=== PATIENT | female | born 1955 | race African-American/Black ===

== ENCOUNTER 2017-08-12 19:25 | Emergency (ER) | payer BC, OTHER ==
[~2017-08-12] VITALS: Ht 157.5 cm; Wt 54.4 kg
--- NOTE | ~2017-08-12 | EKG ---
[place] [address] [address] [facility] [place] [address] ELECTROCARDIOGRAM REPORT Name: CLAUDIA STAFFORD V Room #: [facility]#: [id number] Admission: 08/12/17 Attend Phys: Discharge: 08/12/17 Date of : 51 Report #: [id number] THIS REPORT FOR: //name// [facility] ED Test Date: 2017-08-12 Test Time: 20:25:52 Pat Name: CLAUDIA STAFFORD Department: Room: Gender: F Personnel Monitor: [facility] [place] : 1955 Requested By: Jad Figueroa Order Number: [id number] MD: Mahin Jara Measurements Intervals [place] Rate: 66 P: 24 NC: 165 QRS: -8 QRSD: 72 T: 39 QT: 398 QTc: 417 Interpretive Statements Sinus rhythm Left atrial enlargement Left ventricular hypertrophy Compared to ECG 03/10/2005 23:13:50 Left ventricular hypertrophy now present Sinus tachycardia no longer present Electronically Signed On 08-13-2017 8:24:54 CDT by Mahin Jara [email or web address] <ELECTRONICALLY SIGNED> By: Mahin Jara MD, [facility] 08/13/1724 24 24 Mahin Jara MD, [facility] /EPI
[~2017-08-12 19:25] MED LIST: CYCLOBENZAPRINE5 MG PO; IBUPROFEN 800800 MG PO; XANAX 0.5 MG0.5 MG PO
[2017-08-12 20:01] LABS: ABSOLUTE NEUTROPHILS 2.6 thou/uL (1.4-8.2); BASOPHILS 0.8 % (0.0-2.0); EOSINOPHILS 1.8 % (0.0-3.0); HEMATOCRIT 40.3 % (37.0-47.0); HEMOGLOBIN 13.4 gm/dL (12.0-15.0); LYMPHOCYTES 29.6 % (24.0-44.0); MCH 30.5 pg (26.0-34.0); MCHC 33.4 g/dL (28.0-37.0); MCV 91.2 fL (80.0-100.0); MONOCYTES 10.3 % (1.0-8.0); PLATELET COUNT 267 thou/uL (150-400); POLYS 57.5 % (36.0-66.0); RBC 4.42 mil/uL (4.20-5.00); RDW 13.9 % (10.5-14.5); WBC 4.5 thou/uL (4.0-11.0)
[2017-08-12 20:06] LABS: ANION GAP 10 mmol/L (7-16); BUN 21 mg/dL (7-18); CALCIUM 9.5 mg/dL (8.5-10.1); CHLORIDE 103 mmol/L (98-107); CO2 29 mmol/L (21-32); CREATININE 0.9 mg/dL (0.6-1.0); GLUCOSE 118 mg/dL (74-106); POTASSIUM 3.6 mmol/L (3.5-5.1); SODIUM 142 mmol/L (136-145)
[2017-08-12 20:15] LABS: ALBUMIN 3.9 g/dL (3.4-5.0); MAGNESIUM 2.2 mg/dL (1.8-2.4); SGOT 17 U/L (15-37); SGPT 17 U/L (30-65); TOTAL BILIRUBIN 0.6 mg/dL (<0.1-1.0); TOTAL PROTEIN 8.1 g/dL (6.4-8.2); TROPONIN-I < 0.04 ng/mL (<0.06)
[2017-08-12] MEDS ORDERED: CLONIDINE0.1 PO (20:24)
[2017-08-12] MEDS ORDERED: LISINOPRIL20 MG PO (20:24)
[2017-08-12 22:00] VITALS: BP 176/101
== END 2017-08-12 22:02 | disposition home or self-care (01) ==
LOC: ER 19:25
PROVIDERS: Emergency Medicine
DX: R51 Headache (principal); R20.0 Anesthesia of skin; I10 Essential (primary) hypertension; Z88.0 Allergy status to penicillin

== ENCOUNTER 2018-08-29 09:37 | Emergency (ER) | payer OTHER ==
[~2018-08-29] VITALS: Ht 157.5 cm; Wt 53.5 kg
[~2018-08-29 09:37] MED LIST changes: +CLONIDINE0.1 PO; +LISINOPRIL20 MG PO
[2018-08-29] MEDS ORDERED: NORVASC2.5 MG PO (09:42)
[2018-08-29] MEDS ORDERED: NAPROSYN500 MG PO (10:52)
[2018-08-29 11:30] VITALS: BP 147/76
== END 2018-08-29 11:30 | disposition home or self-care (01) ==
LOC: ER 09:37
DX: S63.501A Unspecified sprain of right wrist, initial encounter (principal); M25.561 Pain in right knee; Z88.0 Allergy status to penicillin; W01.0XXA Fall on same level from slipping, tripping and stumbling without subsequent striking against object, initial encounter; Y93.01 Activity, walking, marching and hiking; Y92.89 Other specified places as the place of occurrence of the external cause; Y99.8 Other external cause status